=== PATIENT | female | born 1965 | race Caucasian/White ===

== ENCOUNTER 2024-10-02 10:03 | Day surgery (SDC) | payer BC, SELFPAY ==
[2024-09-29 09:18] VITALS: BMI 27.1
[2024-10-02] MEDS: LACTATED RINGERS 1000ML 1,000 ML 50 ML IV (10:41)
[2024-10-02 10:43] VITALS: BP 141/75; PULSE 81; RESP 18; TEMP 36.6; O2SAT 98
--- NOTE | 2024-10-02 11:30 | EXP.ANES.CKL ---
[facility] Disclaimer: The information contained in this section may have been updated after the patient was seen, as this information can be updated by other users. 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 Bulging lumbar disc Fibromyalgia Allergies History of cataract Hyperlipidemia History of anemia Surgical History Hx of shoulder surgery Hx of section History of partial hysterectomy Hx of tonsillectomy History of cholecystectomy Family History Other Family history of breast cancer Family history of stroke Social History Smoking Status: Former smoker alcohol intake: never substance use type: denies use current occupational status: disabled Travel in the last 8 weeks?: None [facility] Anesthesia Checklist Patient Identification Patient Identification: Arm Band and Family Structural Data Admitted From: Home Planned Operative Procedure/s: Colonoscopy. Consent for Planned Operative Procedure(s) Verified: Yes Verified Documents: Surgical Consent and History and Physical NPO Status Verified Time NPO: 00:00 Additional verifications Patient : No Anesthesia Reactions: Yes Hx Blood Transfusions: No Blood Transfusion Reaction: No Cephalosporin Allergy: No Previous Colonoscopy: No Airway Assessment Mallampati Score:: Class III C-Spine Mobility Assessed: Yes TMJ Mobility Assessed: Yes Dentition: Good Dentition Neurological Assessment Level of Consciousness: Awake, Alert, Appropriate and Follows Commands Hx Seizures: No Numbness or tingling in extremities: No Anesthesia Plan Anesthesia Risk discussed: Yes ASA Class: II Anesthesia Type: MAC Preoperative Comments Pre-Operative Comments: PONV. Has only one kidney. Multiple allergies. Difficult intubation.
--- NOTE | 2024-10-02 11:32 | EXP.HP ---
History of Present Illness *Admission Date: 10/02/24 *Reason for visit:: Screening for colon cancer *History of present illness: Mrs. Cutler is a 58-year-old female who is here for initial screening colonoscopy. The examination is deemed medically necessary for screening colonoscopy. The patient has been seen, interviewed and examined prior to the procedure by both myself and the anesthesia provider. [facility] Disclaimer: The information contained in this section may have been updated after the patient was seen, as this information can be updated by other users. 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 Bulging lumbar disc Fibromyalgia Allergies History of cataract Hyperlipidemia History of anemia Surgical History Hx of shoulder surgery Hx of section History of partial hysterectomy Hx of tonsillectomy History of cholecystectomy Family History Other Family history of breast cancer Family history of stroke Social History (Updated 10/02/24 @ 11:34 by Yair Saavedra CRNA) Smoking Status: Former smoker alcohol intake: never substance use type: denies use current occupational status: disabled Travel in the last 8 weeks?: None Have you lived/traveled outside [place] in past 30 days?: No Contact w/someone who lives/traveled outside [place] past 30 days?: No Exposure to someone with infectious disease in past 14 days?: No Do you have a fever (greater than 100.4 F or 38 C)?: No Have you tested positive for COVID-19?: No Exposed to someone with COVID-19 in past 14 days?: No Do you have a sore throat?: No Do you have a cough?: No Do you have any weakness?: No Are you experiencing any nausea/vomitting?: No Do you have any diarrhea?: No Are you experiencing any unusual bleeding?: No Do you have any muscle aches/pain?: No Do you have any abdominal pain?: No Are you experiencing loss of taste or smell?: No Review of Systems Review of Systems Review of systems (narrative): Negative *Cardiovascular Comments: Negative *Gastrointestinal Comments: Negative *Genitourinary Comments: Negative *Musculoskeletal Comments: Negative *Neurologic Comments: Negative Meds Home Medications and Allergies New Prescriptions to Start Prescriptions: Allergies Allergy/AdvReac Type Severity Reaction Status Date / Time iodine Allergy Severe Anaphylaxis Verified 09/29/24 09:01 adhesive tape Allergy Mild Blister Verified 09/29/24 09:01 latex Allergy Mild Blister Verified 09/29/24 09:01 levofloxacin (From Levaquin) Allergy Mild Hives Verified 09/29/24 09:01 Sulfa (Sulfonamide Allergy Mild Hives Verified 09/29/24 09:01 Antibiotics) Exam Data for Last 24 hours Vital signs and Labs for Last 24 Hours: Temp Pulse Resp BP Pulse Ox O2 Del Method 97.8 F 81 18 141/75 H 98 Room Air 10/02/24 10:43 10/02/24 10:43 10/02/24 10:43 10/02/24 10:43 10/02/24 10:43 10/02/24 10:43 I & O for Last 24 hours: Intake & Output 09/29/24 09/30/24 10/01/24 10/02/24 23:59 23:59 23:59 23:59 Weight 148 lb *Routine HEENT Exam Head: Present normocephalic Eye: Present EOMI and PERRL ENT: Present mucous membranes moist *Routine Neck Exam Neck: Present supple *Routine Respiratory Exam Respiratory: Present CTA bilaterally *Routine Cardiovascular Exam Cardiovascular: Present RRR *Routine Abdominal Exam Abdominal: Present soft and normoactive bowel sounds; Absent tenderness *Routine Rectal Exam Rectal:: deferred *Routine Genitalia Exam Genitalia:: deferred *Routine Extremities Exam Extremities: Absent cyanosis, clubbing or edema *Routine Skin Exam Skin: Present warm; Absent rash *Routine Neurological Exam Neurological: Present alert and oriented X3 Assessment and Plan *Assessment and plan (1) Screening for colon cancer: Status: Acute Category: Medical Code(s): Z12.11 - Encounter for screening for malignant neoplasm of colon Plan A/P: 1. Screening for colon cancer is the preprocedural diagnosis. The patient will be anesthetized/sedated using MAC sedation. The patient has been seen and examined. Cardiac and lung assessment prior to the examination is stable. Proceed with planned screening colonoscopy.
--- NOTE | 2024-10-02 12:15 | P.PCN_ITS ---
[facility] Procedure Note Date: 10/02/24 Time: 12:43 Procedure Note:: Colonoscopy Procedure Report: Colonoscopy with cold snare polypectomy, snare cautery and Endo Clip placement Endoscopist: Jareth Pearl II, MD Referring physician: SARAH Jacques Date of Procedure: October 02, 2024 Equipment: Olympus [id number] adult colonoscope Sedation: MAC sedation Indication: Mrs. Cutler is a 58-year-old female who is here for initial screening colonoscopy. She reports no abdominal pain, weight loss, change in her bowel habits or rectal bleeding. She reports no family history of colon cancer. Procedure: Prior to the procedure, a history and physical exam was performed, and patient's medications and allergies were reviewed. The risks, benefits and alternatives of the sedation and procedure were discussed with the patient. All questions were answered and informed consent was obtained. The patient was brought to the procedure room. Patient identification and proposed procedure were verified by the physician and the nurse. The patient was placed in a left lateral decubitus position and the scope was passed under direct vision. Throughout the procedure, the patient's blood pressure, pulse, and oxygen saturations were monitored continuously. The colonoscopy was accomplished without difficulty. The patient tolerated the procedure well. Findings: On digital rectal examination there was normal rectal tone. There were no external hemorrhoids. There was a small external tag. The colonoscope was introduced through the anal canal to the rectum and advanced to the cecum. The ileocecal valve and appendiceal orifice were identified. The scope was advanced a short distance into the ileum which appeared grossly normal. The scope was then withdrawn into the colon. There were 10 colon polyps (ascending x 3 (3, 4 and 9 mm), transverse x 2 (4 and 6 mm), descending x 3 (4, 5 and 16 mm (pedunculated)), sigmoid x 1 (7 mm) and rectal x 1 (7 mm)). All of the polyps were removed via cold snare polypectomy with the exception of the descending pedunculated polyp that was removed via snare cautery. An Endo Clip was placed over the polypectomy site of this largest polyp to provide closure and prevent post polypectomy bleeding. The remaining cecum, ascending, transverse, descending, sigmoid and rectum were grossly normal. There were no other mucosal abnormalities identified. Upon retroflexion within the rectum there were grade 1-2 internal hemorrhoids. The preparation was excellent throughout with [place] Preparation Score of 9. The cecal time was 17 minutes. Impression: 1. Colonic polyps x 10 (ranging in size from 3 to 16 mm) Plan: I will follow-up the polyp histology and recommend repeat surveillance colonoscopy again in 3 years.
[2024-10-02 12:46] VITALS: BP 101/57; PULSE 81; RESP 16; TEMP 36.3; O2SAT 96
[2024-10-02 12:56] VITALS: BP 118/59; PULSE 69; O2SAT 100
[2024-10-02 13:06] VITALS: BP 110/59; PULSE 80; O2SAT 100
[2024-10-02 13:16] VITALS: BP 127/72; PULSE 63; RESP 18; O2SAT 100
== END 2024-10-02 13:16 | disposition home or self-care (01) ==
PROVIDERS: PCP Nurse Practitioner Family; Visit Provider Internal Medicine Gastroenterology
PROC: 0DJD8ZZ Inspection of Lower Intestinal Tract, Via Natural or Artificial Opening Endoscopic (ICD-10-PCS; CPT 45378; principal; 2024-10-02 12:00)
DX: Z12.11 Encounter for screening for malignant neoplasm of colon (principal); D12.7 Benign neoplasm of rectosigmoid junction; D12.2 Benign neoplasm of ascending colon; D12.4 Benign neoplasm of descending colon; D12.5 Benign neoplasm of sigmoid colon; D12.3 Benign neoplasm of transverse colon; K64.1 Second degree hemorrhoids; M79.7 Fibromyalgia; E78.5 Hyperlipidemia, unspecified; Z87.891 Personal history of nicotine dependence; Z88.2 Allergy status to sulfonamides; Z88.8 Allergy status to other drugs, medicaments and biological substances; Z88.1 Allergy status to other antibiotic agents; Z91.040 Latex allergy status
CPT/HCPCS: 45385; J2003; J2704; J7120